=== PATIENT | male | born 1960 | race Caucasian/White ===

== ENCOUNTER → 2018-06-26 08:33 | Outpatient (CLI) | payer OTHER, SELFPAY ==
[2018-06-26 10:45] LABS: Anion Gap 9 (5-15); BUN 11 mg/dL (7-18); BUN/Creat Ratio 10.9 RATIO (10-20); Calcium,Total 8.6 mg/dL (8.5-10.1); Chloride 104 mmol/L (98-107); Cholesterol 230 mg/dL (200); Creatinine, Serum 1.01 mg/dL (0.70-1.30); EST Glomerular Filtration Rate 80 mL/min (>60); Est Glom Filt Rate - Afr Amer 97 mL/min (>60); Glucose 82 mg/dL (74-106); High Density Lipoprotein 46 mg/dL; PSA,Total - Annual Screen 2.83 ng/mL (0.00-4.00); Potassium 4.4 mmol/L (3.5-5.1); Sodium Level 138 mmol/L (136-145); Triglycerides 164 mg/dL; Very Low Density Lipoprotein 33 mg/dL (5-40)
== END ==
PROVIDERS: Family Provider Family Medicine; PCP Family Medicine; Visit Provider Family Medicine
DX: Z13.1 Encounter for screening for diabetes mellitus (principal); Z12.5 Encounter for screening for malignant neoplasm of prostate; Z13.220 Encounter for screening for lipoid disorders
CPT/HCPCS: 36415; 80048; 80061; 84153; G0103

== ENCOUNTER → 2025-01-21 | Outpatient (CLI) | payer OTHER, MEDICARE, SELFPAY ==
[2025-01-21 12:59] LABS: Hematocrit 46.0 % (40-54); Hemoglobin 15.8 g/dL (13.0-16.5); Mean Corp Hgb Conc 34.3 g/dL (32-36); Mean Corpuscular Volume 89.5 fL (80-94); Mean Platelet Vol. 10.0 fl (6.2-12.0); Platelet Count 245 K/mm3 (150-450); RBC Distribution Width CV 12.3 % (11.6-14.6); RBC Distribution Width SD 40.9 fl (35.1-43.9); Red Blood Count 5.14 M/mm3 (4.6-6.2); White Blood Count 5.4 K/mm3 (4.4-11.0)
[2025-01-21 13:40] LABS: AST(SGOT) 22 U/L (<=37); Alanine Aminotransfer ALT/SGPT 22 U/L (<=46); Albumin, Serum 4.2 g/dL (3.4-4.8); Alkaline Phosphatase 91 U/L (40-129); Anion Gap 9 (5-15); BUN 13 mg/dL (4-19); BUN/Creat Ratio 14.1 RATIO (10-20); Calcium,Total 9.5 mg/dL (7.6-11.0); Carbon Dioxide 24.1 mmol/L (21.0-32.0); Chloride 104 mmol/L (98-108); Cholesterol 223 mg/dL (<=200); Globulin 2.5 g/dL (2.2-4.2); Glucose 89 mg/dL (70-99); Low Density Lipoprotein Calc. 150 mg/dL; Potassium 4.6 mmol/L (3.3-5.1); Triglycerides 131 mg/dL; Very Low Density Lipoprotein 26 mg/dL (5-40); cholesterol:hdl ratio screen 4.78
[2025-01-21 14:04] LABS: PSA,Total - Annual Screen 7.72 ng/mL (0.02-4.00)
== END | disposition home or self-care (01) ==
LOC: MFPLAB 10:27
PROVIDERS: PCP Family Medicine; Visit Provider Family Medicine
DX: N40.0 Benign prostatic hyperplasia without lower urinary tract symptoms (principal); R68.2 Dry mouth, unspecified; Z13.220 Encounter for screening for lipoid disorders; R60.0 Localized edema
CPT/HCPCS: 36415; 80053; 80061; 84153; 84443; 85027; G0103